=== PATIENT | female | born 1980 | race Hispanic/Latino ===

== ENCOUNTER 2024-06-11 18:18 | Emergency (ER) | payer SELFPAY ==
[~2024-06-11] VITALS: Ht 157.5 cm; Wt 72.6 kg
[2024-06-11 18:32] VITALS: BP 112/73; PULSE 99; RESP 20; TEMP 100.2; O2SAT 98
[2024-06-11 19:29] LABS: RAPID GROUP A STREP negative (NEGATIVE)
[2024-06-11 19:34] LABS: SARS-CoV-2, RNA, NAAT NEGATIVE SARS CoV-2 (NEGATIVE)
[2024-06-11] MEDS: ketOROlac 30MG VIAL (30MG/ML) IM ONE (19:34)
[2024-06-11] MEDS: dexaMETHasone SOD PHOSPHATE 4 MG/ML 1ML VIAL IM ONE (19:35)
[2024-06-11 19:39] LABS: INFLUENZA TYPE A Negative For Type A (NEGATIVE); INFLUENZA TYPE B Negative For Type B (NEGATIVE)
--- NOTE | 2024-06-11 19:39 | ERN ---
General Chief Complaint: Earache Stated Complaint: COUGH, FEVER, EAR PAIN, URINARY PROB Time Seen by MD: 18:20 Time Seen by Midlevel: 18:20 Source: patient History of Present Illness Initial Comments Patient is a 43-year-old female presenting to the emergency department with multiple complaints. Patient states that for the last seven days she was had a fever with a productive cough. Today she developed bilateral ear pain along with nasal congestion. She also reports dysuria that started yesterday. Denies taking any medications on a daily basis. She reports taking Tylenol and Motrin as needed for fever with little to no relief. Denies any past medical history. Allergies: Coded Allergies: No Known Drug Allergies (Unverified Allergy, Unknown, 06/11/24) Past Medical History Past Medical History: No Pertinent History Past Surgical History: None Female( History) LMP: Apr 07, 2024 : 1 Para: 1 ROS Dictation CONSTITUTIONAL: Negative except for HPI HEAD/FACE: Negative except for HPI EENT: Negative except for HPI RESPIRATORY: Negative except for HPI GASTROINTESTINAL/ABDOMINAL: Negative except for HPI GENITOURINARY: Negative except for HPI MUSCULOSKELETAL: Negative except for HPI INTEGUMENTARY: Negative except for HPI NEUROLOGICAL/PSYCH: Negative except for HPI HEMATOLOGIC/LYMPHATIC: Negative except for HPI All Systems Negative, Except as noted above. 13 point review of systems assessed and all negative except for above. Physical Exam Physical Exam Dictation Vital Signs reviewed General Appearance: Alert, oriented x 3, no acute distress, well developed, nourished. Head and Face: non-traumatic. Eyes: PERRL, pink conjunctivas, eyelid no trauma, anterior chamber with arcus senilis. Ears: Erythematous/bulging tympanic membranes bilaterally, no signs of trauma or erythema ear canals clear and no discharge Nose: No discharge, no bleeding. Oropharynx: Mouth normal, tongue pink, pharynx clear,no erythema, tonsils no exudates, no abscesses noted, mucous membrane moist Neck: Supple, non-tender, no thyromegaly, no masses, no JVD, no bruits Breast:Deferred Chest:No tenderness, no crepitus, no paradoxical movement, no retractions Lungs:Clear, well-ventilated, symmetric, no rales, no wheezing, no rhonchi, no stridor, good breath sounds bilaterally Heart: Regular rate, regular rhythm, no murmur, no gallops Vascular: no peripheral edema, Abdomen: Soft, positive bowel sounds, nondistended, no guarding, nontender, no rebound, no masses no hepatomegaly, no splenomegaly, no Brown's sign, no hernias. Rectal: Deferred Genital: Deferred Neurological: Normal speech, motor function intact, sensory function intact Musculoskeletal: Neck nontender, full range of motion, back nontender, full range of motion, Extremities: nontender, full range of motion Skin: Color pink, dry, no turgor, no rash, no lacerations, no abrasions, no contusions. Lymphatic: Deferred Results Laboratory and Microbiology Lab and Micro Result Laboratory Tests Test 06/11/24 18:36 06/11/24 19:38 Influenza Type A Antigen Negative For Type A Influenza Type B Antigen Negative For Type B SARS-CoV-2, RNA, NAAT NEGATIVE SARS CoV-2 Group A Streptococcus Rapid negative (NEGATIVE) Urine Color YELLOW (YELLOW) Urine Appearance CLEAR (CLEAR) Urine pH 6.5 (5.0-8.0) Urine Specific [place] 1.031 (1.001-1.031) Urine Protein 10 mg/dL (NEGATIVE) H Urine Glucose (UA) NEGATIVE mg/dL (NEGATIVE) Urine Ketones NEGATIVE mg/dL (NEGATIVE) Urine Occult Blood NEGATIVE (NEGATIVE) Urine Nitrate NEGATIVE (NEGATIVE) Urine Bilirubin NEGATIVE mg/dL (NEGATIVE) Urine Urobilinogen 12 mg/dL (0.2-1.0) H Urine Leukocyte Esterase 25 Raymond/uL (NEGATIVE) H Urine RBC 2-5 /HPF (0-1) H Urine WBC 0-1 /HPF (0-1) Urine Squamous Epithelial Cells FEW /HPF (0-2) Urine Bacteria None /HPF (None Seen) Urine HCG, Qualitative NEGATIVE (NEGATIVE) Labs Reviewed?: Yes MDM MDM: Patient is a 43-year-old female presenting to the emergency department with multiple complaints. Patient states that for the last seven days she was had a fever with a productive cough. Today she developed bilateral ear pain along with nasal congestion. She also reports dysuria that started yesterday. Denies taking any medications on a daily basis. She reports taking Tylenol and Motrin as needed for fever with little to no relief. Denies any past medical history. On physical examination patient is in no acute respiratory distress. Lung sounds are clear to auscultation bilaterally. There is bulging tympanic membranes to bilateral ears consistent with otitis media. There is some mild erythema to the posterior oropharynx. Her urinalysis does not show any evidence of infection. Respiratory swabs are negative. Her chest x-ray shows some prominent interstitial markings. We will discharge home with a prescription for Augmentin, Toradol, and Medrol pack for supportive management. Patient is a advised to follow up with PCP in 2-3 days for repeat evaluation. Return precautions discussed Differential diagnosis: Viral syndrome, upper respiratory infection, urinary tract infection, pneumonia There are no social concerns with this patient. Prescription drug management Prescriptions will include: Augmentin, Medrol pack, Toradol Medical management and examination interpretation discussions were had by me with other qualified healthcare professionals as indicated for the patient's care. ED Course Orders Procedure Category Date Status Time Covid Rna Naat LAB 06/11/24 Complete 19:07 Urinalysis Profile LAB 06/11/24 Complete 19:07 ,Urine Test LAB 06/11/24 Complete 19:07 Rapid (Group A Strep) LAB 06/11/24 Complete 19:07 Influenza Type A & B, LAB 06/11/24 Complete Rapid 19:07 Chest 1vw RAD 06/11/24 Taken 19:07 Ketorolac PHA 06/11/24 Complete Tromethamine 30mg/Ml 19:30 Dexamethasone 4mg/Ml PHA 06/11/24 Complete 1ml Vial (Dexametha 19:30 Current Medications Medications (Trade) Dose Ordered Sig/Carissa Route PRN Reason Start Time Stop Time Status Last Admin Dose Admin Dexamethasone Sodium Phosphate (dexaMETHasone 4MG/ML 1ML VIAL) 6 mg ONCE ONCE IM 06/11/24 19:30 06/11/24 19:31 DC 06/11/24 19:35 Ketorolac Tromethamine (toRADol) 30 mg ONCE ONCE IM 06/11/24 19:30 06/11/24 19:31 DC 06/11/24 19:34 Vital Signs Date Time Temp Pulse Resp B/P (MAP) Pulse Ox O2 Delivery O2 Flow Rate FiO2 06/11/24 18:32 100.2 99 20 112/73 98 Room Air* 0 21 06/11/24 18:32 100.2 99 20 112/73 98 Room Air 0 DX & DISP Disposition: Discharge Departure Impression: Primary Impression: Bilateral otitis media Additional Impression: Pneumonitis Condition: Stable Scripts Ketorolac Tromethamine (Ketorolac Tromethamine) 10 Mg Tablet 1 TAB PO TID for pain for 5 Days, #15 TAB 0 Refills Prov: JHONNY CHAVIRA 06/11/24 Methylprednisolone (Medrol) 4 Mg Tab.ds.pk 1 TAB PO AD for 6 Days, #21 TAB 0 Refills 6 on day 1 then reduce by one tablet daily until gone Prov: JHONNY CHAVIRA 06/11/24 Amoxicillin/Potassium Clav (Amox Tr-K Clv 875-125 mg Tab) 875 Mg-125 Mg Tablet 1 EACH PO BID for 5 Days, #10 TAB 0 Refills Prov: JHONNY CHAVIRA 06/11/24 Referrals: SELF,REFERRAL (PCP) Time of Disposition: 20:19 I have reviewed the case, and I agree with, Diagnosis and Plan I performed the substantive portion of the visit. I have reviewed and personally made and approve the management plan that is documented in the note by myself or the POLLO. I acknowledge for responsibility for the patient's management plan. JHONNY CHAVIRA Jun 11, 2024 19:39
[2024-06-11 19:52] LABS: APPEARANCE,URINE CLEAR (CLEAR); BILIRUBIN,URINE NEGATIVE (NEGATIVE); COLOR,URINE YELLOW (YELLOW); GLUCOSE, URINE (UA) NEGATIVE (NEGATIVE); HCG,QUALITATIVE URINE NEGATIVE (NEGATIVE); KETONES,URINE NEGATIVE (NEGATIVE); LEUKOCYTE ESTERASE ,URINE 25 Leu/uL (NEGATIVE); NITRATE,URINE NEGATIVE (NEGATIVE); OCCULT BLOOD,URINE NEGATIVE (NEGATIVE); PH,URINE 6.5 (5.0-8.0); PROTEIN,URINE 10 mg/dL (NEGATIVE); UROBILINOGEN,URINE 12 mg/dL (0.2-1.0)
[2024-06-11 19:53] LABS: ADD UA MICROSCOPIC YES
[2024-06-11 19:54] LABS: MUCUS,URINE RARE LPF (None Seen); SQUAMOUS EPITHELIAL CELL,UR FEW /HPF (0-2); WBC,URINE 0-1 /HPF (0-1)
[2024-06-11] MEDS ORDERED: KETO10TA2 PO (20:20)
[2024-06-11] MEDS ORDERED: METH4TAB3 PO (20:20)
[2024-06-11] MEDS ORDERED: AMOX1TAB16 PO (20:20)
--- NOTE | 2024-06-11 22:16 | HMCIMG ---
CHEST 1VW HISTORY: Cough and fever COMPARISON: None FINDINGS: A frontal projection of the chest was obtained. Prominent interstitial markings are seen with possible superimposed infiltrates. The heart is normal in size. Degenerative changes are seen. No evidence of aortic calcification is seen. IMPRESSION: 1. Prominent interstitial markings are seen with possible superimposed infiltrates.
== END 2024-06-11 20:41 | disposition home or self-care (01) ==
LOC: EDH 18:18
DX: H66.93 Otitis media, unspecified, bilateral (principal); J98.4 Other disorders of lung; Z20.822 Contact with and (suspected) exposure to COVID-19
CPT/HCPCS: 99284; 71045; 87635; 87880; 87804 ×2; 81001; 81025; 96372 ×2; J1100; J1885

== ENCOUNTER 2024-06-17 18:37 | Emergency (ER) | payer SELFPAY ==
[~2024-06-17] VITALS: Ht 127 cm; Wt 67.1 kg
[~2024-06-17 18:37] MED LIST: AMOX1TAB16 PO; KETO10TA2 PO; METH4TAB3 PO
--- NOTE | 2024-06-17 18:54 | ERN ---
ED Note History of Present Illness Stated Complaint: EAR PAIN Chief Complaint: Earache Time Seen by MD: 18:43 Time Seen by Midlevel: 18:43 Dictation: The patient is a 43-year-old female with no past medical history who presents to the emergency department with complaints of bilateral ear pain onset two weeks ago. Patient reports that she has been having upper respiratory symptoms a week ago reports nonproductive cough, nasal congestion. Patient was seen here and was diagnosed with a otitis media and was given Augmentin which patient completed treatment but continues with symptoms. Allergies: Coded Allergies: No Known Drug Allergies (Unverified Allergy, Unknown, 06/11/24) Home Meds Active Scripts Ketorolac Tromethamine (Ketorolac Tromethamine) 10 Mg Tablet, 1 TAB PO TID for pain for 5 Days, #15 TAB 0 Refills Prov:JHONNY CHAVIRA 06/11/24 Methylprednisolone (Medrol) 4 Mg Tab.ds.pk, 1 TAB PO AD for 6 Days, #21 TAB 0 Refills 6 on day 1 then reduce by one tablet daily until gone Prov:JHONNY CHAVIRA 06/11/24 Amoxicillin/Potassium Clav (Amox Tr-K Clv 875-125 mg Tab) 875 Mg-125 Mg Tablet, 1 EACH PO BID for 5 Days, #10 TAB 0 Refills Prov:JHONNY CHAVIRA 06/11/24 Past Medical History Past Medical History: No Pertinent History Surgical History: None LMP: Mar 19, 2020 : 1 Para: 1 RN Note Reviewed/Agreed w/PFSH: Yes Review of System Dictation Constitutional: Negative for fever,chills, and weight loss Eyes: Negative for injury, pain,redness, and discharge ENT: Negative for injury,pain or swelling positive for bilateral ear pain Cardiovascular: Negative for chest pain, palpitations, and edema Respiratory: Negative for shortness of breath, cough, and wheezing, Abdomen/GI: Negative for abdominal pain, nausea, vomiting, diarrhea, and constipation Back: Negative for injury and pain : Negative for injury, bleeding and discharge MS/Extremity: Negative for injury and deformity Skin: Negative for rash, and discoloration Neuro: Negative for headache, weakness, numbness, tingling, and seizure Psych: Negative for suicide ideation, homicidal ideation, and hallucinations Initial Vital Sign VS Vital Signs Date Time Temp Pulse Resp B/P (MAP) Pulse Ox O2 Delivery O2 Flow Rate FiO2 06/17/24 18:40 98.4 86 16 104/81 97 Room Air 0 06/17/24 19:28 21 Physical Exam Dictation Vital Signs reviewed General Appearance: Alert, oriented x 3, no acute distress, well developed, nourished. Head and Face: non-traumatic. Eyes: PERRL, pink conjunctivas, eyelid no trauma, anterior chamber with arcus senilis. Ears: Pinnas intact and no signs of trauma or erythema ear canals clear and no discharge tympanic membrane with a erythema, bulging Nose: No discharge, no bleeding. Oropharynx: Mouth normal, tongue pink. pharynx clear,no erythema, tonsils no exudates, no abscesses noted, mucous membrane moist Neck: Supple, non-tender, no thyromegaly, no masses, no JVD, no bruits Breast:Deferred Chest:No tenderness, no crepitus, no paradoxical movement, no retractions Lungs:Clear, well-ventilated, symmetric, no rales, no wheezing, no rhonchi, no stridor, good breath sounds bilaterally Heart: Regular rate, regular rhythm, no murmur, no gallops Vascular: no peripheral edema, Abdomen: Soft, positive bowel sounds, nondistended, no guarding, nontender, no rebound, no masses no hepatomegaly, no splenomegaly, no Brown's sign, no hernias. Rectal: Deferred Genital: Deferred Neurological: Normal speech, motor function intact, sensory function intact Musculoskeletal: Neck nontender, full range of motion, back nontender, full range of motion, Extremities: nontender, full range of motion Skin: Color pink, dry, no turgor, no rash, no lacerations, no abrasions, no contusions. Lymphatic: Deferred Results (Laboratory/Radiology) Laboratory/Radiology Laboratory Tests Test 06/17/24 20:37 Urine HCG, Qualitative NEGATIVE (NEGATIVE) Labs Reviewed?: Yes ED Course ED Course Orders Procedure Category Date Status Time ,Urine Test LAB 06/17/24 Complete 18:50 Acetaminophen 500mg PHA 06/17/24 Complete Tab (Tylenol 500mg T 19:00 Ketorolac 60mg/2ml PHA 06/17/24 Complete (Toradol 60mg/2ml) 20:30 Dexamethasone 4mg/Ml PHA 06/17/24 Complete 1ml Vial (Dexametha 20:30 Current Medications Medications (Trade) Dose Ordered Sig/Carissa Route PRN Reason Start Time Stop Time Status Last Admin Dose Admin Acetaminophen (TYLenol 500MG TAB) 1,000 mg ONCE ONCE PO 06/17/24 19:00 06/17/24 19:01 DC 06/17/24 19:49 Dexamethasone Sodium Phosphate (dexaMETHasone 4MG/ML 1ML VIAL) 6 mg ONCE ONCE IM 06/17/24 20:30 06/17/24 20:31 DC 06/17/24 20:39 Ketorolac Tromethamine (toRADol 60MG/ 2ML) 60 mg ONCE ONCE IM 06/17/24 20:30 06/17/24 20:31 DC 06/17/24 20:40 Vital Signs Date Time Temp Pulse Resp B/P (MAP) Pulse Ox O2 Delivery O2 Flow Rate FiO2 06/17/24 19:28 98.2 85 16 104/80 98 Room Air* 0 21 06/17/24 18:40 98.4 86 16 104/81 97 Room Air 0 Medical Decision Making MDM The patient is a 43-year-old female with no past medical history who presents to the emergency department with complaints of bilateral ear pain onset two weeks ago. Patient reports that she has been having upper respiratory symptoms a week ago reports nonproductive cough, nasal congestion. Patient was seen here and was diagnosed with a otitis media and was given Augmentin which patient completed treatment but continues with symptoms. Patient has symptoms consistent with a otitis media. Patient finished a course of Augmentin. Will start her on Levaquin p.o.. Patient instructed to follow up with PCP. For possible ENT referral Differential diagnosis: Otitis media, otitis externa, upper respiratory infection Need for hospitalization: Patient does not meet criteria for hospitalization. There are no social concerns with this patient. DX & DISP Disposition: Discharge Departure Impression: Primary Impression: Bilateral otitis media Condition: Stable Scripts Levofloxacin (Levaquin 750Mg Tabs) 750 Mg Tablet 1 TAB PO DAILY for 5 Days, #5 TAB 0 Refills Prov: BELINDA RUIZ MAILING MACHINE HELPER 06/17/24 Additional Instructions: Please follow up with your PCP in 1-2 days. If symptoms worsen please return to ER. You will need a referral for ENT FOLLOW-UP WITH PRIMARY CARE PROVIDER IN 1 TO 2 DAYS. TAKE MEDICATIONS DIRECTED HERE IN THE EMERGENCY ROOM. OKAY TO CONTINUE HOME MEDICATIONS UNLESS OTHERWISE DISCUSSED DURING YOUR VISIT IN THE EMERGENCY ROOM TODAY. RETURN TO YOUR NEAREST EMERGENCY ROOM IF SYMPTOMS WORSEN OR IF THERE IS NO IMPROVEMENT. CALL 911 IF YOU NEED IMMEDIATE ASSISTANCE. TAKE TYLENOL OR MOTRIN [id number] NEEDED AND IF NO CONTRAINDICATIONS ARE PRESENT. INCREASE ORAL HYDRATION. A WOUND CULTURE OR URINE CULTURE WAS ORDERED HERE IN THE EMERGENCY ROOM DEPARTMENT PLEASE FOLLOW-UP WITH PRIMARY CARE PROVIDER AND ADVISE THEM TO GET REPEAT PORTS FROM OUR FACILITY. IF YOU HAD ANY JUDITH WRAP/SPLINTS THAT WERE APPLIED HERE, PLEASE DO NOT REMOVE THEM UNTIL YOU SEE YOUR PRIMARY CARE OR SPECIALTY. Referrals: SELF,REFERRAL (PCP) Time of Disposition: 21:17 I have reviewed the case, and I agree with, Diagnosis and Plan BELINDA RUIZ MAILING MACHINE HELPER Jun 17, 2024 18:54
[2024-06-17 19:28] VITALS: BP 104/80; PULSE 85; RESP 16; TEMP 98.3; O2SAT 98
[2024-06-17] MEDS: acetaMINOPHEN 500 MG TABLET PO ONE (19:49)
[2024-06-17] MEDS: dexaMETHasone SOD PHOSPHATE 4 MG/ML 1ML VIAL IM ONE (20:39)
[2024-06-17] MEDS: ketOROlac 60 MG VIAL (30MG/ML) IM ONE (20:40)
[2024-06-17] MEDS ORDERED: LEVO750T68 PO (21:17)
== END 2024-06-17 21:23 | disposition home or self-care (01) ==
LOC: EDH 18:37
DX: H66.93 Otitis media, unspecified, bilateral (principal)
CPT/HCPCS: 99284; 81025; 96372 ×2; J1100; J1885